=== PATIENT | female | born 1955 | race Caucasian/White ===

== ENCOUNTER 2025-08-12 13:13 | Inpatient (IN) | payer MEDICARE, OTHER, SELFPAY ==
--- NOTE | 2025-08-12 13:31 | ED_ITS ---
HPI - Psych General Chief Complaint: Psychiatric Symptoms Stated Complaint: crisis, si? Time Seen by Provider: 08/12/25 14:36 Source: patient Mode of arrival: ambulatory Limitations: no limitations History of Present Illness ED Provider: Fabiola Sorto PA-C HPI Narrative: Patient is a 70 year old assigned female at with a history of interstitial cystitis presenting to the emergency department today with suicidal ideation. Patient states that she has been feeling depressed and suicidal. Patient denies any other complaints at this time. Related Data Home Medications ?Medication ?Instructions ?Recorded ?Confirmed Colace 100 mg PO BEDTIME 08/12/25 0 08/12/25 albuterol sulfate 90 mcg/actuation 2 puff inhalation Q 4H PRN Wheezing 08/12/25 08/12/25 aerosol inhaler anastrozole 1 mg tablet 1 mg PO DAILY 08/12/2508/12 atorvastatin 40 mg tablet 40 mg PO BEDTIME 08/12/25 bupropion HCl 300 mg 24 hr tablet, 300 mg PO QAM 08/1208/12/25 extended release cariprazine 1.5 mg capsule 1.5 mg PO BEDTIME 08/12/25 08/12/25 (Vraylar) fluoxetine 20 mg capsule 20 mg PO QAM 08/12/25 gabapentin 300 mg capsule 300 mg PO DAILY 08/12/25 gabapentin 600 mg tablet 600 mg PO BEDTIME 08/12/25 0 08/12/25 hydroxyzine HCl 25 mg tablet 25 mg PO DAILY PRN itch 0 08/12/25 08/12/25 lorazepam 1 mg PO DAILY MRX1 PRN anxie ty 08/12/25 08/12/25 lorazepam 1 mg tablet 1 mg PO BEDTIME 08/12/25 melatonin 5 mg tablet 5 mg PO BEDTIME 08/12/25 nitrofurantoin 1 cap PO BID 08/12/25 monohydrate/macrocrystals 100 mg capsule vibegron 75 mg tablet (Gemtesa) 75 mg PO DAILY 5 08/12/25 Allergies Allergy/AdvReac Type Severity Reaction Status Date / Time No Known Allergies Allergy Verified 08/12/25 13:32 Review of Systems 2 Constitutional: Constitutional: Reports as per HPI Eyes: Eyes: Reports as per HPI ENT: Reports as per HPI Cardiovascular: Cardiovascular: Reports as per HPI Respiratory: Respiratory: Reports as per HPI Gastrointestinal: Gastrointestinal: Reports as per HPI Genitourinary: Genitourinary: Reports as per HPI Musculoskeletal: Musculoskeletal: Reports as per HPI Integumentary/Breasts: Skin/Breast: Reports as per HPI Neurologic: Reports as per HPI Psychiatric: Psychiatric: Reports as per HPI Endocrine: Endocrine: Reports as per HPI Hematologic/Lymphatic: Hematologic/Lymphatic: Reports as per HPI Allergic/Immunologic: Allergic/Immunologic: Reports as per HPI [facility] Past Medical History Attestation statement: The following information was validated with the patient. Source: old records reviewed and nursing notes reviewed Social History Social History Advance Directives: No Advance Directives Information Provided: Yes Physical Exam 2 Vital Signs: Vital Signs: Last Vital Signs Temp 97.8 F 08/13/25 06:07 Pulse 89 08/13/25 06:07 Resp 18 08/13/25 06:07 BP 167/91 H 08/13/25 06:07 Pulse Ox 98 08/13/25 06:07 O2 Del Method Room Air 08/13/25 06:07 BMI result Body Mass Index 24.2 Const: General: cooperative, no acute distress, alert and awake Nutritional Appearance: well nourished Orientation/consciousness: patient oriented x3 HEENT: Head: Yes normal to inspection and Yes atraumatic Ears: hearing grossly normal bilaterally and external ears normal General nose exam: Normal external nose present, no nasal discharge noted and no epistaxis Face and sinus: Yes normal facial exam, No abrasion and No laceration Mouth: Normal oral and palatal mucosa present, no drooling and no muffled voice Eyes: General: appearance normal, both eyes and all related structures P eriorbital: periorbital findings normal Eyelids: Yes eyelids normal C onjunctivae: conjunctivae normal Pupils: Equal, round and reactive pupils present EOM: EOMs intact bilaterally Neck: Neck: Yes normal visual inspection and Yes full ROM Resp: Effort & Inspection: normal respiratory effort and able to speak in complete sentences Neuro: General: patient oriented x3, moves all extremities and CN's II-XI intact bilaterally Cranial nerves: Yes Equal, round and reactive pupils present Cognition (Neuro): normal cognition Extrem: General: Yes normal to inspection, Yes full ROM and Yes capillary refill normal Psych: Appearance: grossly normal Mental Status: mental status grossly normal Affect: Sad affect present Thought content: Suicidality present Course Course Course Narrative: This is a Rapid Medical Examination (RME) performed by Cj Adames PA-C in triage. Full HPI, ROS, assessment and treatment plan per primary provider in the Main ED. Hx: 70 yo F here w/ depression and SI. Plan: med clearance, care team Reevaluation(s) Reevaluation #1: Time: 06:02 Date: 08/13/25 Provider: Swati Shaw DO Patient in physician observation for psychiatric evaluation.? No acute events reported overnight. No current complaints. VS stable.? Patient is in bed search status. on macrobid for UTI. Will continue to monitor. Reevaluation #2: Time: 14:37 Date: 08/13/25 Provider: Swati Shaw DO Physician observation ended at 237pm. Patient to be admitted as inpatient to psychiatry. Medications Administered Generic Name Dose Route Start Last Admin Trade Name Freq PRN Reason Stop Dose Admin Acetaminophen 650 mg 08/13/25 06:02 08/13/25 06:34 Acetaminophen 325 Mg Tablet PO 650 mg Q6H PRN Administration Pain, Mild 1-3,fever,headache Anastrozole 1 mg 08/13/25 09:00 08/13/25 09:29 Anastrozole 1 Mg Tablet PO 1 mg DAILY KENZIE Administration Atorvastatin Calcium 40 mg 08/12/25 21:30 08/12/25 21:45 Atorvastatin Calcium 40 Mg Tablet PO 40 mg BEDTIME KENZIE Administration Bupropion HCl 300 mg 08/13/25 09:00 08/13/25 08:39 Bupropion Hcl Xl 300 Mg Tab.Er.24h PO 300 mg DAILY KENZIE Administration Cariprazine 1.5 mg 08/12/25 21:30 08/12/25 21:45 Cariprazine Hcl 1.5 Mg Capsule PO 1.5 mg BEDTIME KENZIE Administration Docusate Sodium 100 mg 08/12/25 21:30 08/12/25 21:45 Docusate Sodium 100 Mg Capsule PO 100 mg BEDTIME KENZIE Administration Fluoxetine HCl 20 mg 08/13/25 09:00 08/13/25 08:39 Fluoxetine Hcl 20 Mg Capsule PO 20 mg DAILY KENZIE Administration Gabapentin 600 mg 08/12/25 21:00 08/12/25 21:44 Gabapentin 600 Mg Tablet PO 600 mg BEDTIME KENZIE Administration Gabapentin 300 mg 08/13/25 09:00 08/13/25 08:39 Gabapentin 300 Mg Capsule PO 300 mg DAILY KENZIE Administration Lorazepam 1 mg 08/12/25 21:30 08/12/25 21:45 Lorazepam 1 Mg Tablet PO 1 mg BEDTIME KENZIE Administration Melatonin 6 mg 08/12/25 21:30 08/12/25 21:45 Melatonin 3 Mg Tablet PO 6 mg BEDTIME KENZIE Administration Nitrofurantoin Macrocrystals 100 mg 08/12/25 21:30 08/13/25 08:39 Nitrofurantoin Monohyd/M-Cryst 100 Mg Capsule PO 100 mg BID KENZIE Administration Discontinued Medications Generic Name Dose Route Start Last Admin Trade Name Lit PRN Reason Stop Dose Admin Acetaminophen 975 mg 08/12/25 20:25 08/12/25 20:43 Acetaminophen 325 Mg Tablet PO 08/12/25 20:26 975 mg ONCE ONE Administration Medical Decision Making Medical Decision Making MDM Narrative: Patient is a 70 year old assigned female at with a history of interstitial cystitis presenting to the emergency department today with suicidal ideation. Patient's physical exam was as noted in the physical exam portion of this note and consistent with a depressed individual. Patient's blood work was unremarkable. I explained my physical exam findings as well as all test results to the patient. I answered all questions asked by the patient. Patient placed in observation - pending CARE team evaluation at 1436 on 08/12/2025. Patient's disposition will be determined after CARE team evaluation. 08/12/2025 0761 Fabiola Sorto PA-C ---> CARE team evaluated the patient and recommended inpatient level of care. Differential Diagnosis Differential Diagnoses: The differential diagnosis associated with the presentation includes Depression Suicidal ideation Admission/Observation Consideration of admission/observation: Escalation of care including admission/observation considered Patient will either be admitted here at [facility] psychiatric service or transferred to an appropriate inpatient psychiatric unit. Consult Healthcare Provider Management of the patient was discussed with: Behavioral Health Provider (spoke with the CARE team as noted in the MDM Rationale portion of this note. ) Lab Data [facility] Lab Attestation statement: I reviewed the patient's lab results. My interpretation of these results are in the MDM Rationale portion of this note. 08/12/25 14:02 08/12/25 14:02 Labs: Lab Results 08/12/25 08/12/25 Range/Units 14:02 16:18 WBC 7.0 (4.8-10.8) X10*3/uL RBC 5.07 (4.20-5.50) X10*6/uL Hgb 14.4 (12.0-16.0) g/dl Hct 43.5 (37.0-47.0) % MCV 85.8 (80.0-98.0) fL MCH 28.4 (27.0-33.0) pg MCHC 33.1 (31.0-35.0) g/dl RDW 13.2 (11.0-16.0) % Plt Count 186 (160-400) X10*3/uL MPV 10.8 (9.4-12.3) fL Immature Gran % (Auto) 0.4 (0.0-0.4) % Neut % (Auto) 80.6 H (45-73) % Lymph % (Auto) 12.6 L (20-40) % [place] % (Auto) 5.7 (2-11) % Eos % (Auto) 0.6 (0-4) % Baso % (Auto) 0.1 (0-2) % Lymph # (Auto) 0.9 L (1.2-4.9) X10*3/uL [place] # (Auto) 0.4 (0.1-1.2) X10*3/uL Eos # (Auto) 0.0 (0.0-0.4) X10*3/uL Baso # (Auto) 0.0 (0.0-0.2) X10*3/uL Abs Immat Gran (auto) 0.03 (0.00-0.03) X10*3/uL Absolute Neuts (auto) 5.6 (2.0-8.3) x10*3/uL Absolute Nucleated RBC 0.000 (0.0-0.012) X10*3/uL Nucleated RBC % (auto) 0.0 (0.0-0.2) /100WBC Sodium 143 (135-145) mmol/L Potassium 3.7 (3.3-5.1) mmol/L Chloride 109 H (96-108) mmol/L Carbon Dioxide 27 (22-29) mmol/L Anion Gap 11 L (12-20) BUN 14 (9-16) mg/dL Creatinine 0.96 (0.5-1.4) mg/dL Estim Creat Clear Calc 51.8 Estimated GFR 58 Random Glucose 97 (60-115) mg/dL Calcium 9.3 (8.4-10.2) mg/dL Magnesium 2.2 (1.6-2.6) mg/dL Total Bilirubin 0.4 (0.0-1.0) mg/dL AST 23 (5-31) U/L ALT 15 (0-31) U/L Alkaline Phosphatase 71 (39-117) U/L Total Protein 7.3 (6.5-8.0) g/dL Albumin 4.4 (3.5-5.0) g/dL Urine Color Yellow Urine Appearance Clear Urine pH 6.5 (5.0-9.0) Ur Specific [place] 1.010 (1.005-1.025) Urine Protein Negative (Neg-Trace) mg/dL Urine Glucose (UA) Negative (Negative) mg/dL Urine Ketones Negative (Negative) mg/dL Urine Blood Negative (Negative) Urine Nitrite Positive H (Negative) Ur Leukocyte Esterase Small (1+) H (Negative) Urine RBC 0-2 (0-2) /HPF Urine WBC 6-10 H (0-5) /HPF Ur Squamous Epith Cells 0-2 (0-2) /HPF Urine Bacteria 4+ (None Seen) Hyaline Casts 0-2 (0-2) /LPF Salicylates < 5.0 L (15-30) mg/dL Urine Opiates Screen Not Detected (Not Detect) Ur Buprenorphine Scrn Not Detected (Not Detect) ng/mL Ur Oxycodone Screen Not Detected (Not Detect) ng/mL Urine Methadone Screen Not Detected (Not Detect) ng/mL Urine Fentanyl Screen POSITIVE H (Not Detect) Acetaminophen 5 (<30) mcg/mL Ur Barbiturates Screen Not Detected (Not Detect) Ur Phencyclidine Scrn Not Detected (Not Detect) Ur Amphetamines Screen Not Detected (Not Detect) U Benzodiazepines Scrn Not Detected (Not Detect) Urine Cocaine Screen Not Detected (Not Detect) U Marijuana (THC) Screen Not Detected (Not Detect) Ethyl Alcohol < 10 mg/dL Discharge Plan Discharge Clinical Impression: Suicidal ideation Patient Disposition: Admitted As Inpatient Interventions: Bonner-Suicide Risk Severity Scale Last Done: 08/12/25 14:46 Print Language: Vincentian
[2025-08-12 13:32] VITALS: BP 162/83; PULSE 86; RESP 16; TEMP 36.2; O2SAT 96; BMI 24.2
[2025-08-12 14:07] LABS: MANUAL DIFF FLAG NO
[2025-08-12 14:08] LABS: Hematocrit 43.5 % (37.0-47.0); Hemoglobin 14.4 g/dl (12.0-16.0); Imm Gran Abs Auto 0.03 X10*3/uL (0.00-0.03); Imm Gran Pct Auto 0.4 % (0.0-0.4); Lymphocytes Absolute Auto 0.9 X10*3/uL (1.2-4.9); Mean Corpuscular HGB Conc 33.1 g/dl (31.0-35.0); Mean Corpuscular Hemoglobin 28.4 pg (27.0-33.0); Mean Corpuscular Volume 85.8 fL (80.0-98.0); NRBC Abs Auto 0.000 X10*3/uL (0.0-0.012); NRBC Pct Auto 0.0 /100WBC (0.0-0.2); Platelet Count 186 X10*3/uL (160-400); Red Blood Count 5.07 X10*6/uL (4.20-5.50); White Blood Count 7.0 X10*3/uL (4.8-10.8)
[2025-08-12 14:25] LABS: Acetaminophen LAB 5 mcg/mL (<30); Alanine Aminotransferase 15 U/L (0-31); Albumin Level 4.4 g/dL (3.5-5.0); Alkaline Phosphatase 71 U/L (39-117); Anion Gap 11 (12-20); Aspartate Amino Transferase 23 U/L (5-31); Blood Urea Nitrogen 14 mg/dL (9-16); Calcium 9.3 mg/dL (8.4-10.2); Carbon Dioxide 27 mmol/L (22-29); Chloride 109 mmol/L (96-108); Creatinine Clr Calc Pharmacy 51.8; Estimated Glomerular Filt Rate 58; Magnesium 2.2 mg/dL (1.6-2.6); Potassium 3.7 mmol/L (3.3-5.1); Salicylate < 5.0 mg/dL (15-30); Sodium 143 mmol/L (135-145); Total Protein 7.3 g/dL (6.5-8.0)
[2025-08-12 14:48] VITALS: BP 162/83; PULSE 86; RESP 16; TEMP 36.2
[2025-08-12 16:37] LABS: Appearance Urine Clear; Glucose Urine UA Negative (Negative); PH 6.5 (5.0-9.0); Specific Gravity - Urine 1.010 (1.005-1.025); UMIC TRIGGER UACC YES
[2025-08-12 16:40] LABS: UACC Culture Trigger YES
[2025-08-12 16:50] LABS: Cannabinoid Screen Urine Not Detected (Not Detect)
--- NOTE | 2025-08-12 21:16 | PHA.MEDREC ---
Pharmacy Consult ? Medication Reconciliation Pharmacy has completed the medication reconciliation. Completed by nursing, reviewed by pharmacy
--- NOTE | 2025-08-12 22:20 | PC.NURSE ---
home meds ordered. pt mediated per JAN. pt very upset and afraid to drink again because she is frequently in the bathroom to urinate. pt needs Gemtesa brought in from home for overactive badder.
--- NOTE | 2025-08-13 05:50 | PC.NURSE ---
pt resting comfortably through the night, up a few times to use the bathroom but did get some rest.
[2025-08-13 06:07] VITALS: BP 167/91; PULSE 89; RESP 18; TEMP 36.6; O2SAT 98
--- NOTE | 2025-08-13 07:09 | PC.NURSE ---
Assumed care, report received. Pt is awake and eating her breakfast, she states she feels tired and depressed. Vague SI.
--- NOTE | 2025-08-13 08:09 | ECG_ITS ---
Test Reason : med clearance Blood Pressure : */* mmHG Vent. Rate : 92 BPM Atrial Rate : 92 BPM P-R Int : 156 ms QRS Dur : 82 ms QT Int : 368 ms P-R-T Axes : 32 51 88 degrees QTcB Int : 455 ms Sinus rhythm with Premature atrial complexes Anteroseptal infarct , age undetermined Abnormal ECG No previous ECGs available Referred By: Swati Shaw Electronically Signed By: Juan Antonio Burk
[2025-08-13] MEDS: buPROPion HCl XL 300 MG TAB.ER.24H PO (08:39)
--- NOTE | 2025-08-13 14:48 | PC.NURSE ---
Pt had a visit form a assistant at surgery, Joelle that has been working with her for afew days. Pt was told she was going to an Adult, instead of a geriatric unit and had increased anxiety and tearful. SHe was given ativan with good effect.
[2025-08-13 16:50] VITALS: BP 160/80; PULSE 98; RESP 18; TEMP 36.4; O2SAT 99
[2025-08-13 16:51] VITALS: BMI 25.9
--- NOTE | 2025-08-13 18:56 | PC.ADMIT ---
Yue, who likes to be called Adriana arrived on M5 on M5 at 1615 with an admitting diagnosis of SI, worsening depression. Adriana has been experiencing increased stressors in her life and has a history of 3 past suicide attempts all in 2020. 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 [facility]. She reports she has outpatient providers but feels her depression is not managed. She denies smoking, illicit drug use, and alcohol use. She is open to a aircraft assembler visit and flu vaccine. She has multiple medical issues including asthma, sleep apnea (came in with own CPAP machine), breast CA, bladder CA, painful bladder syndrome.? She is currently being treated for a UTI and follows a bland diet for IBS. She denies SI/HI/AVH, rates depression 10 and anxiety 7. She also reports a broken tooth which she is taking Tylenol and Oragel has been ordered. She signed a CV with Teresa Phelan placed? on 15 min checks, filled out the dinner menu, and oriented to the unit.?
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
[2025-08-13 20:00] VITALS: BP 135/76; PULSE 93; RESP 18; TEMP 35.9; O2SAT 99
[2025-08-13] MEDS: Benzocaine 20 % Oral Gel 9 GM TUBE 1 APPL MUCOUS MEM (22:41)
[2025-08-14 08:00] VITALS: BP 140/75; PULSE 84; TEMP 36.1; O2SAT 96
[2025-08-14] MEDS: PT OWN (Vibegron [Gemtesa] 75 mg tablet) 75 EACH PO (08:24)
[2025-08-14] MEDS: buPROPion HCl XL 300 MG TAB.ER.24H PO (08:25)
--- NOTE | 2025-08-14 08:29 | HO.PM.IMCN ---
History of Present Illness Data of Consult Service Date: 08/14/25 Primary Care Provider: Iman Lainez MD [facility] Reason for consult: Medical management 70-year-old female with a past medical history of hyperlipidemia, asthma, history of breast cance 2012, status post lumpectomy and radiation, history of renal cancer 2020, status post resection. OLU on CPAP and recurrent major depressive disorder with anxiety presented to ED with increased depression and suicidal ideation. ED workup revealed a normal CBC with no leukocytosis or anemia, no electrolyte imbalances, no evidence of renal or liver injury, urinalysis indicative of urinary tract infection, she was treated with Macrobid. Her tox screen is positive for fentanyl(question of false positicve). Denies substance use. On exam she denies any shortness of breath, dizziness, lightheadedness, urinary symptoms, abdominal symptoms, nausea vomiting or diarrhea, headaches or visual changes. She reports a reaction to tape on her right antecubital region, 2 small areas of purpura noted. No open areas. She has no health concerns Review of Systems Review of Systems: Denies any shortness of breath, chest pain, dizziness, lightheadedness, abdominal pain or discomfort, nausea vomiting or diarrhea PMFSH Social History Household Members: None Housing: House Do you presently have visiting nurse or other home services: No Patient Tobacco Use Status: Never used Tobacco Smoked in Last 30 Days: No Patient Interested in Nicotine Replacement: No Patient Given Instructions on How to Stop Smoking: No Second Hand Smoke Exposure: No Currently Displaying Signs/Symptoms of Drug Intoxication Withdrawal: No Spiritual Healthcare Practices: NA Jehovah'S Witness Healthcare Practices: Mosque Cultural Healthcare Practices: NA Advance Directives: No Advance Directives Information Provided: Yes Do you have thoughts of harming others: None Do you have a plan to hurt others: No Plan Recently lost weight without trying: Unsure How much weight loss: Unsure Eating poorly because of decreased appetite: No Nutrition screen score: 4 Nutrition Risks: No Nutritional Risk Patient : No : No Poor oral hygiene: No service: No Sexual orientation: Straight/Heterosexual Meds Allergies Allergy/AdvReac Type Severity Reaction Status Date / Time No Known Allergies Allergy Verified 08/12/25 13:32 Active Medications: Current Medications Acetaminophen (Acetaminophen 325 Mg Tablet) 650 mg PO Q6H PRN PRN Reason: Pain, Mild 1-3,fever,headache Last Admin: 08/13/25 22:41 Dose: 650 mg Al Hydroxide/Mg Hydroxide (Magnesium Hydrox/Alum Hydrox 30 Ml Oral.Susp) 30 ml PO Q6H PRN PRN Reason: Heartburn/Nausea Anastrozole (Anastrozole 1 Mg Tablet) 1 mg PO DAILY [facility] Last Admin: 08/14/25 08:25 Dose: 1 mg Atorvastatin Calcium (Atorvastatin Calcium 40 Mg Tablet) 40 mg PO BEDTIME KENZIE Last Admin: 08/13/25 22:20 Dose: 40 mg Benzocaine (Benzocaine 20 % Oral Gel 9 Gm Tube) 1 appl MUCOUS MEM QID PRN; Protocol PRN Reason: tooth Last Admin: 08/13/25 22:41 Dose: 1 appl Bupropion HCl (Bupropion Hcl Xl 300 Mg Tab.Er.24h) 300 mg PO DAILY [facility] Last Admin: 08/14/25 08:25 Dose: 300 mg Cariprazine (Cariprazine Hcl 1.5 Mg Capsule) 1.5 mg PO BEDTIME KENZIE Last Admin: 08/13/25 22:20 Dose: 1.5 mg Docusate Sodium (Docusate Sodium 100 Mg Capsule) 100 mg PO BEDTIME KENZIE Last Admin: 08/13/25 22:20 Dose: 100 mg Fluoxetine HCl (Fluoxetine Hcl 20 Mg Capsule) 20 mg PO DAILY KENZIE Last Admin: 08/14/25 08:25 Dose: 20 mg Gabapentin (Gabapentin 600 Mg Tablet) 600 mg PO BEDTIME KENZIE Last Admin: 08/13/25 22:18 Dose: 600 mg Gabapentin (Gabapentin 300 Mg Capsule) 300 mg PO DAILY KENZIE Last Admin: 08/14/25 08:25 Dose: 300 mg Hydroxyzine HCl (Hydroxyzine Hcl 25 Mg Tablet) 25 mg PO DAILY PRN PRN Reason: itch Ibuprofen (Ibuprofen 600 Mg Tablet) 600 mg PO Q6H PRN PRN Reason: tooth pain Lorazepam (Lorazepam 1 Mg Tablet) 1 mg PO BEDTIME KENZIE Last Admin: 08/13/25 22:18 Dose: 1 mg Lorazepam (Lorazepam 1 Mg Tablet) 1 mg PO BEDTIME PRN PRN Reason: anxiety Magnesium Hydroxide (Milk Of Magnesia 30 Ml Oral.Susp) 30 ml PO DAILY PRN PRN Reason: Constipation Melatonin (Melatonin 3 Mg Tablet) 6 mg PO BEDTIME KENZIE Last Admin: 08/13/25 22:20 Dose: 6 mg Nicotine (Nicotine 21 Mg Patch.Td24) 21 mg TRANSDERMA DAILY PRN PRN Reason: nicotine craving Nicotine Polacrilex (Nicotine Polacrilex 2 Mg Gum) 2 mg BUCCAL Q2H PRN PRN Reason: Nicotine Cravings Nitrofurantoin Macrocrystals (Nitrofurantoin Monohyd/M-Cryst 100 Mg Capsule) 100 mg PO BID KENZIE Stop: 08/17/25 23:59 Last Admin: 08/14/25 08:25 Dose: 100 mg Pt Own (Vibegron [ Gemtesa] 75 Mg Tablet) 75 mg PO DAILY KENZIE Last Admin: 08/14/25 08:24 Dose: 75 mg Trazodone HCl (Trazodone Hcl 50 Mg Tablet) 50 mg PO BEDTIME MRX1 PRN PRN Reason: Insomnia Home Medications ?Medication ?Instructions ?Recorded ?Confirmed ?Last Taken ?Type Colace 100 mg PO BEDTIME 08/12/25 08/12/25 08/11/25 History albuterol sulfate 90 mcg/actuation 2 puff inhalation Q4H PRN Wheezing 08/12/25 08/12/25 Unknown History aerosol inhaler anastrozole 1 mg tablet 1 mg PO DAILY 08/12/25 08/12/25 08/11/25 History atorvastatin 40 mg tablet 40 mg PO BEDTIME 08/12/25 08/12/25 08/11/25 History bupropion HCl 300 mg 24 hr tablet, 300 mg PO QAM 08/12/25 08/12/25 08/11/25 History extended release cariprazine 1.5 mg capsule 1.5 mg PO BEDTIME 08/12/25 08/12/25 08/11/25 History (Otoniel) fluoxetine 20 mg capsule 20 mg PO QAM 08/12/25 08/12/25 08/11/25 History gabapentin 300 mg capsule 300 mg PO DAILY 08/12/25 08/12/25 08/11/25 History gabapentin 600 mg tablet 600 mg PO BEDTIME 08/12/25 08/12/25 08/11/25 History hydroxyzine HCl 25 mg tablet 25 mg PO DAILY PRN itch 08/12/25 08/12/25 08/11/25 History lorazepam 1 mg PO DAILY MRX1 PRN anxiety 08/12/25 08/12/25 Unknown History lorazepam 1 mg tablet 1 mg PO BEDTIME 08/12/25 08/12/25 08/11/25 History melatonin 5 mg tablet 5 mg PO BEDTIME 08/12/25 08/12/25 08/11/25 History nitrofurantoin 1 cap PO BID 08/12/25 08/12/25 08/12/25 History monohydrate/macrocrystals 100 mg capsule vibegron 75 mg tablet (Gemtesa) 75 mg PO DAILY 08/12/25 08/12/25 08/11/25 History Physical Exam Vital Signs and Narrative: Vital Signs: Last Vital Signs Temp 96.9 F 08/14/25 08:00 Pulse 84 08/14/25 08:00 Resp 18 08/13/25 20:00 BP 140/75 H 08/14/25 08:00 Pulse Ox 96 08/14/25 08:00 O2 Del Method Room Air 08/14/25 08:00 BMI result Body Mass Index 25.9 CONST: Alert and oriented, in NAD. Well nourished HEENT: Normocephalic, atraumatic, MMM, Eyes clear, Neck supple RESP: Lungs clear, RRR even and regular HEART:,RRR, S1, S2. No murmur, no edema GI:Abdomen Soft NT, ND. + BS times four :Deferred SKIN: Warm dry and intact, 2 small areas of purpura to the lateral and medial aspect of right elbow. NEURO:CN II-XII Intact bilaterally, Sensation intact. Speech clear PSYCH: Normal affect Results Labs 08/12/25 14:02 08/12/25 14:02 Assessment and Plan (1) Interstitial cystitis: Status: Acute Plan 70-year-old female recurrent major depressive disorder with anxiety, and suicidal ideation is admitted here after medically cleared by the ED for mood stabilization. MDD/anxiety/SI Treatment per psychiatric team OLU Continue with CPAP HLD Continue Atorvastatin History of breast and bladder cancer Bladder-resection in 2010 Breast-status post radiation and lumpectomy in 2013-now continues on anastrozole Interstitial cystitis/UTI Continue Gemtesa Currently being treated for UTI Followed by Dr. Chatman yearly Thank you for allowing me to participate in the care of this patient. Will follow as needed, please notify medical provider with any changes in condition or concerns.
--- NOTE | 2025-08-14 09:45 | MHC.CLN ---
CONSULT NOTED THAT PATIENT FOLLOWS A BLAND DIET DUE TO IBS. ABLE TO MAKE OWN MENU SELECTIONS. DIET RX REGULAR. NO FURTHER DIET RESTRICTION RX TO ALLOW FOR PATIENT CHOICES.
[2025-08-14] MEDS: Flu Vacc TS2025-26(6mo up)/PF 0.5 ML SYRINGE IM (11:29)
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
[2025-08-14] MEDS: Benzocaine 20 % Oral Gel 9 GM TUBE 1 APPL MUCOUS MEM (18:40)
[2025-08-14 19:42] VITALS: BP 149/81; PULSE 94; TEMP 36.4; O2SAT 96
[2025-08-15 08:00] VITALS: BP 179/80; PULSE 88; RESP 16; TEMP 36; O2SAT 95
[2025-08-15 08:31] LABS: Alanine Aminotransferase 17 U/L (0-31); Albumin Level 4.7 g/dL (3.5-5.0); Alkaline Phosphatase 65 U/L (39-117); Anion Gap 11 (12-20); Aspartate Amino Transferase 23 U/L (5-31); Blood Urea Nitrogen 13 mg/dL (9-16); Calcium 9.8 mg/dL (8.4-10.2); Carbon Dioxide 28 mmol/L (22-29); Chloride 109 mmol/L (96-108); Cholesterol 177 mg/dL (<200); Creatinine Clr Calc Pharmacy 60.9; Estimated Glomerular Filt Rate > 60; HDL Cholesterol 47 mg/dL (>40); Potassium 4.4 mmol/L (3.3-5.1); Sodium 144 mmol/L (135-145); Total Protein 7.3 g/dL (6.5-8.0); Triglycerides 151 mg/dL (<150)
[2025-08-15 08:49] LABS: Free T4 (Free Thyroxine) 0.98 ng/dL (0.71-1.85); Thyroid Stimulating Hormone 2.27 uIU/mL (0.32-4.0)
[2025-08-15] MEDS: buPROPion HCl XL 300 MG TAB.ER.24H PO (08:54)
[2025-08-15] MEDS: PT OWN (Vibegron [Gemtesa] 75 mg tablet) 75 EACH PO (08:54)
[2025-08-15 08:58] LABS: Folate 5.5 ng/mL (> or = 4.0); Vitamin B12 266 pg/mL (200-900)
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
[2025-08-15 10:00] VITALS: BP 148/78
[2025-08-15 10:29] LABS: Hemoglobin A1C 129.5448 umol/L; Total Hemoglobin (HGBA1C) 3570.6238 umol/L
[2025-08-15 20:22] VITALS: BP 161/88; PULSE 94; RESP 18; TEMP 36.3; O2SAT 100
[2025-08-16 08:00] VITALS: BP 168/79; PULSE 96; RESP 15; TEMP 36.5; O2SAT 95
[2025-08-16] MEDS: buPROPion HCl XL 300 MG TAB.ER.24H PO (09:14)
[2025-08-16] MEDS: PT OWN (Vibegron [Gemtesa] 75 mg tablet) 75 EACH PO (09:24)
--- NOTE | 2025-08-16 13:56 | PM.EVENT ---
Event Note Date of Service: 08/16/25 Event Note: Patient noted to have elevated blood pressure readings, greater than 140s over 80s. We will start low-dose lisinopril and follow up with labs on Tuesday and titrate up as needed. Time Spent With Patient Time: Total time managing care of this patient today ____ minutes.
[2025-08-16 15:05] VITALS: BP 139/79
--- NOTE | 2025-08-16 17:24 | PC.NURSE ---
Pt very hesitant to take Lisinopril. She stated that she has never had HTN before and believes that it is directly related to being inpatient.
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
[2025-08-16 20:00] VITALS: BP 170/82; RESP 100; TEMP 36.4; O2SAT 98
[2025-08-16] MEDS: Benzocaine 20 % Oral Gel 9 GM TUBE 1 APPL MUCOUS MEM (21:11)
--- NOTE | 2025-08-17 07:47 | HO.PSYCHPN ---
Subjective Subjective Date of Service: 08/17/25 Reason For Visit: SI Subjective Notes: Conditional Voluntary Healthcare Proxy: No Guardianship: No Medical Problems Affecting Mental Status: No Interim History: 70 yo who is feeling better physical issues of bp/uti- though today complaining of diarrhea to nuring = observed by this provider small formed stools- reports some trouble sleeping last night with cpap being missing- was found and not feeling comfortable on mattress- denies current si/hi/avh- discussed with pt not using lorazepam at bed time if doesn't have cpap machine- this scared pt then she wanted to get off lorazepam- but discussed would need to be weened off over time to be discussed with team- but likely safe with cpap- Medication Compliance: Yes Side effects from medications: No Attending Groups: Yes Review of Systems Acute medical concerns: No improved bp today Medical Review of Systems: changed (co looser stools- stool did not look like worrisome diarrhea- ) Mental Status Exam Mental Status Exam Patient Appearance: Appropriate Patient Orientation: Person, Place, Time and Situation Level of Consciousness: Awake Patient Behavior: Appropriate, Cooperative and Good Eye Contact Mood Description: Nervous Affect Description: Apprehensive Patient Cognition Impaired: No Ability to Follow Directions: Good Speech Pattern: Clear Hallucinations: None Delusions: Not Present Thought Process: Intact and Goal Oriented Thought Content: positive for Intact Judgement: Fair Diagnostics Vital Signs (24Hr): Vital Signs - 24 hr 08/16/25 08:00 08/16/25 15:05 08/16/25 20:00 Temperature 97.7 F 97.5 F Pulse Rate 96 Respiratory Rate 15 100 H Blood Pressure 168/79 H 139/79 170/82 H Pulse Oximetry 95 98 Oxygen Delivery Method Room Air Room Air BMI result Body Mass Index 25.9 Labs 08/12/25 14:02 08/15/25 07:53 Labs: Laboratory Results - last 48 hr 08/15/25 07:53 Sodium 144 Potassium 4.4 Chloride 109 H Carbon Dioxide 28 Anion Gap 11 L BUN 13 Creatinine 0.89 Estim Creat Clear Calc 60.9 Estimated GFR > 60 Random Glucose 115 Estimat Average Glucose 111 Hemoglobin A1c % 5.5 Calcium 9.8 Total Bilirubin 0.4 AST 23 ALT 17 Alkaline Phosphatase 65 Total Protein 7.3 Albumin 4.7 Triglycerides 151 H Cholesterol 177 LDL Cholesterol, Calc 100 H HDL Cholesterol 47 Vitamin B12 266 Folate 5.5 TSH 2.27 Free T4 0.98 Medications Medications Current Medications Acetaminophen (Acetaminophen 325 Mg Tablet) 650 mg PO Q6H PRN PRN Reason: Pain, Mild 1-3,fever,headache Last Admin: 08/16/25 21:10 Dose: 650 mg Al Hydroxide/Mg Hydroxide (Magnesium Hydrox/Alum Hydrox 30 Ml Oral.Susp) 30 ml PO Q6H PRN PRN Reason: Heartburn/Nausea Anastrozole (Anastrozole 1 Mg Tablet) 1 mg PO DAILY [facility] Last Admin: 08/16/25 09:14 Dose: 1 mg Atorvastatin Calcium (Atorvastatin Calcium 40 Mg Tablet) 40 mg PO BEDTIME KENZIE Last Admin: 08/16/25 21:10 Dose: 40 mg Benzocaine (Benzocaine 20 % Oral Gel 9 Gm Tube) 1 appl MUCOUS MEM QID PRN; Protocol PRN Reason: tooth Last Admin: 08/16/25 21:11 Dose: 1 appl Bupropion HCl (Bupropion Hcl Xl 300 Mg Tab.Er.24h) 300 mg PO DAILY [facility] Last Admin: 08/16/25 09:14 Dose: 300 mg Cariprazine (Cariprazine Hcl 3 Mg Capsule) 3 mg PO BEDTIME [facility] Last Admin: 08/16/25 21:10 Dose: 3 mg Docusate Sodium (Docusate Sodium 100 Mg Capsule) 100 mg PO BID [facility] Last Admin: 08/16/25 21:10 Dose: 100 mg Fluoxetine HCl (Fluoxetine Hcl 20 Mg Capsule) 20 mg PO DAILY [facility] Last Admin: 08/16/25 09:14 Dose: 20 mg Gabapentin (Gabapentin 600 Mg Tablet) 600 mg PO BEDTIME [facility] Last Admin: 08/16/25 21:10 Dose: 600 mg Gabapentin (Gabapentin 300 Mg Capsule) 300 mg PO DAILY [facility] Last Admin: 08/16/25 09:14 Dose: 300 mg Ibuprofen (Ibuprofen 600 Mg Tablet) 600 mg PO Q6H PRN PRN Reason: tooth pain Last Admin: 08/15/25 08:57 Dose: 600 mg Lisinopril (Lisinopril 2.5 Mg Tablet) 2.5 mg PO DAILY [facility]; Protocol Last Admin: 08/16/25 15:05 Dose: 2.5 mg Loperamide HCl (Loperamide Hcl 2 Mg Capsule) 4 mg PO Q4H PRN PRN Reason: loose stool Last Admin: 08/14/25 16:18 Dose: 2 mg Lorazepam (Lorazepam 1 Mg Tablet) 1 mg PO BEDTIME [facility] Last Admin: 08/16/25 21:10 Dose: 1 mg Lorazepam (Lorazepam 1 Mg Tablet) 1 mg PO BEDTIME PRN PRN Reason: anxiety Magnesium Hydroxide (Milk Of Magnesia 30 Ml Oral.Susp) 30 ml PO DAILY PRN PRN Reason: Constipation Melatonin (Melatonin 3 Mg Tablet) 6 mg PO BEDTIME [facility] Last Admin: 08/16/25 21:09 Dose: 6 mg Nicotine (Nicotine 21 Mg Patch.Td24) 21 mg TRANSDERMA DAILY PRN PRN Reason: nicotine craving Nicotine Polacrilex (Nicotine Polacrilex 2 Mg Gum) 2 mg BUCCAL Q2H PRN PRN Reason: Nicotine Cravings Nitrofurantoin Macrocrystals (Nitrofurantoin Monohyd/M-Cryst 100 Mg Capsule) 100 mg PO BID [facility] Stop: 08/17/25 23:59 Last Admin: 08/16/25 21:10 Dose: 100 mg Pt Own (Vibegron [ Gemtesa] 75 Mg Tablet) 75 mg PO DAILY [facility] Last Admin: 08/16/25 09:24 Dose: 75 mg Trazodone HCl (Trazodone Hcl 50 Mg Tablet) 50 mg PO BEDTIME MRX1 PRN PRN Reason: Insomnia Allergies Allergies Allergy/AdvReac Type Severity Reaction Status Date / Time No Known Allergies Allergy Verified 08/12/25 13:32 Assessment & Plan Assessment & Plan (1) Interstitial cystitis: Status: Acute Code(s): N30.10 - Interstitial cystitis (chronic) without hematuria (2) Suicidal ideation: Status: Acute Code(s): R45.851 - Suicidal ideations (3) 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 Patient reports that she feels as if she had a crash in mid May after [employer] raised the rent by $300. She reports that she had was on high since mid February, spending excessive money and experiencing an increase in energy like bus of energy . Patient reports having suicidal thoughts with no plan. Reports 3 prior suicide attempts in 2020 secondary to depressive episodes via overdose and strangled herself twice. Mother in March of 2025 and she had so much going on. She also reports was diagnosed with interstitial sistis and this has been ongoing stressors for her as she had to completely change her diet. Reports poor appetite. Formulation/clinical reasoning: Increasing in depression and anxiety, changing in appetite, increasing in suicidal thoughts. Feel like is she is back to the previous time during 2020 when she has 3 suicide attempts and was hospitalized for 3 times in that year. Increase in stress related to financial issues. Given history of 3 prior suicide attempts, history of severe depression and anxiety. Patient will benefit in restrictive environment for her own safety, medication adjustment for mood, and refer patient back to outpatient psychiatric services. Hospital course: 08/13/25: Continue with all home medications She is on Wellbutrin 300 for weight control in combination with naltrexone. However she has not taking naltrexone. Recently start on Prozac 20 mg for about 5 days ago from outpatient provider. She also start on Vraylar less than a month ago with current dose is 1.5 mg as potential to having bipolar the patient reports. Ativan 1 mg bedtime with a repeat dose not able to sleep for anxiety. Given Motrin 600 kill 6 hours p.r.n. for to pain. Orajel order q.i.d. for toot pain (bottom left crack tooth). On Macrobid twice a dayx 5 days for UTI. Last dose on 08/17. Gabapentin different dose during the day and at nighttime for anxiety. 08/14/25: Patient slept for 9 hours, compliant with medications. Reports no side effects. Patient so reports she did not slept well last night. We discussed medication change regarding Vraylar to target her anxiety depression/and possible high energy level symptoms. Patient denies safety concerns. Reports her anxiety is slightly better compared to yesterday but the depression is still there. Patient expressed frustration and upset regarding the CPAP machine at night. Reported it was tight but she was not able to adjust it as her daughter usually helps her at home. She also having concerns of how it was clean after she uses it. Concerns related to nursing. Nursing also reports patient reports 2 loose stool since this morning, Imodium ordered, and Vraylar increased up to 3 mg at bedtime. Patient is receptive to the plan, observe visible and attended groups, pleasant and cooperative, she shower this morning, wearing pajain2nite outfit. Vraylar 3mg at HS and Imodium 4mg q4hrs PRN for loose stools. Patient seen by hospitalist for H+P: per hospitalist note regarding medical treatment plan: OLU Continue with CPAP HLD Continue Atorvastatin History of breast and bladder cancer Bladder-resection in 2010 Breast-status post radiation and lumpectomy in 2012-now continues on anastrozole Interstitial cystitis/UTI Continue Gemtesa Currently being treated for UTI Followed by Dr. Chatman yearly 08/15/25: Patient reports she slept better than the night before, happier with the CPAP machine that was able to be adjusted. Reports feeling tired which could be from combination of feeling not able to sleep well the past to night, new environment, and medication increased. Patient denies safety concerns. No hallucinations. She is happy having a good visit with her daughter. This couple people came to visit today as well. Patient reports anxiety is elevated today after talking to the social media marketing manager in the morning. She reported that her son who is in [place] we will have the 1st baby soon. Less depressed. Patient seen by the dentist 2 weeks ago, the crack tooth was not able to be extracted due to calcium treatment. Patient will have Josefa from [facility] make appointments with the dentist so she can get it done after discharge. Patient feels that she may be ready by next Tuesday or . We will continue to monitor for safety and mental status change. We will review with patient regarding lab results. Patient reported that when she stressors at home, sometimes she is reading or going to the [facility] for activities and groups. She is aware that that is what she should do daily as she has a membership there. Advised patient not to giving personal information to any patients on the unit. Continued to encourage groups No med changes today. Tired but do well with Vraylar increased. 08/16/25: Patient slept for 8 hours, appetite is the same. She has been moved to 3 different rooms since yesterday. She is observed visible and attended groups. Eating in kitchen with peers. Social and be appropriate. Patient reports that she feels dizzy this morning after given Hydroxyzine this morning for anxiety. Patient has good family support and her sister in [place] who is wealthy who is able to help out patient with portion of the rent monthly which takes a lot of financial burden away from her shoulder which has been bothered her since May. Patient observed happy, smile, less anxious compare to this morning. She talks about how helpful her sister- Ambreen is. She is happy that she can start PHP at [facility] where they provide transportation and she would also attend to [facility] more often for exercise classes. Reviewed new medication for HTN which she says she does not have hx of but not sure why it has been elevated since admitted. . Will continue to monitor. BP has been elevated the past couple of days. Hospitalist contacted, started Lisinopril 2.5mg daily start today. 08/17- no change to plan - continues improving- 2nd round abiotics for uti- didn't sleep well last pm- Plan Patient on 15 minute checks for safety. 5 minute checks at night for CPAP Admitted to [facility]. CV. Work with treatment team to do collateral Utox +FEN which could be false positive as she denies using any substances. Seen by hospitalist on 08/14/25: broken tooth that sharp. Patient to FLU with the dentist upon discharge. Patient educated on: medication risk/benefits Informed Consent: understands and further education needed Reason for continued inpatient stay Substantial Risk for: rapid decompensation Time Spent With Patient Time: Total time managing care of this patient today ____ minutes.
[2025-08-17 08:00] VITALS: BP 131/59; PULSE 81; RESP 18; TEMP 37; O2SAT 95
[2025-08-17] MEDS: buPROPion HCl XL 300 MG TAB.ER.24H PO (08:57)
[2025-08-17] MEDS: PT OWN (Vibegron [Gemtesa] 75 mg tablet) 75 EACH PO (09:07)
[2025-08-17 13:04] VITALS: BP 146/68; PULSE 96; RESP 16; TEMP 36; O2SAT 97
[2025-08-17 16:12] VITALS: BP 158/80; PULSE 91; O2SAT 98
[2025-08-17 20:00] VITALS: BP 145/65; PULSE 87; TEMP 36.4; O2SAT 97
--- NOTE | 2025-08-18 07:25 | P.PNPSI_ITS ---
Subjective Subjective Date of Service: 08/18/25 Reason For Visit: SI Subjective Notes: Conditional Voluntary Healthcare Proxy: No Guardianship: No Medical Problems Affecting Mental Status: Yes (bp resolved, ongoing co diarrhea but really frequent formed stools) Interim History: 70 yo WF says she slept a little better last pm- looking to go to [facility]- Energy ok, reports intersitial cystitis so goes to frequently- hx uti x 2 abitoics- Asked pt to let us know if stool became unformed- Medication Compliance: Yes Side effects from medications: No Attending Groups: Intermittent Review of Systems Acute medical concerns: No Medical Review of Systems: unchanged Mental Status Exam Mental Status Exam Patient Appearance: Well Grooomed and Appropriate Patient Orientation: Person, Place, Time and Situation Level of Consciousness: Awake Patient Behavior: Appropriate, Cooperative and Good Eye Contact Mood Description: Calm Affect Description: Blunted Patient Cognition Impaired: No Ability to Follow Directions: Good Speech Pattern: Clear Hallucinations: None Delusions: Not Present Thought Process: Intact and Goal Oriented Judgement: Good Diagnostics Vital Signs (24Hr): Vital Signs - 24 hr 08/17/25 08:00 08/17/25 13:04 08/17/25 16:12 Temperature 98.6 F 96.8 F Pulse Rate 81 96 91 Respiratory Rate 18 16 Blood Pressure 131/59 L 146/68 H 158/80 H Pulse Oximetry 95 97 98 Oxygen Delivery Method Room Air Room Air Room Air 08/17/25 20:00 Temperature 97.6 F Pulse Rate 87 Respiratory Rate Blood Pressure 145/65 H Pulse Oximetry 97 Oxygen Delivery Method Room Air BMI result Body Mass Index 25.9 Labs 08/12/25 14:02 08/15/25 07:53 Medications Medications Current Medications Acetaminophen (Acetaminophen 325 Mg Tablet) 650 mg PO Q6H PRN PRN Reason: Pain, Mild 1-3,fever,headache Last Admin: 08/17/25 19:13 Dose: 650 mg Al Hydroxide/Mg Hydroxide (Magnesium Hydrox/Alum Hydrox 30 Ml Oral.Susp) 30 ml PO Q6H PRN PRN Reason: Heartburn/Nausea Anastrozole (Anastrozole 1 Mg Tablet) 1 mg PO DAILY KENZIE Last Admin: 08/17/25 08:58 Dose: 1 mg Atorvastatin Calcium (Atorvastatin Calcium 40 Mg Tablet) 40 mg PO BEDTIME KENZIE Last Admin: 08/17/25 21:10 Dose: 40 mg Benzocaine (Benzocaine 20 % Oral Gel 9 Gm Tube) 1 appl MUCOUS MEM QID PRN; Protocol PRN Reason: tooth Last Admin: 08/16/25 21:11 Dose: 1 appl Bupropion HCl (Bupropion Hcl Xl 300 Mg Tab.Er.24h) 300 mg PO DAILY [facility] Last Admin: 08/17/25 08:57 Dose: 300 mg Cariprazine (Cariprazine Hcl 3 Mg Capsule) 3 mg PO BEDTIME [facility] Last Admin: 08/17/25 21:10 Dose: 3 mg Docusate Sodium (Docusate Sodium 100 Mg Capsule) 100 mg PO BID [facility] Last Admin: 08/17/25 22:35 Dose: Not Given Fluoxetine HCl (Fluoxetine Hcl 20 Mg Capsule) 20 mg PO DAILY [facility] Last Admin: 08/17/25 08:57 Dose: 20 mg Gabapentin (Gabapentin 600 Mg Tablet) 600 mg PO BEDTIME [facility] Last Admin: 08/17/25 21:10 Dose: 600 mg Gabapentin (Gabapentin 300 Mg Capsule) 300 mg PO DAILY [facility] Last Admin: 08/17/25 09:07 Dose: 300 mg Ibuprofen (Ibuprofen 600 Mg Tablet) 600 mg PO Q6H PRN PRN Reason: tooth pain Last Admin: 08/17/25 21:10 Dose: 600 mg Lisinopril (Lisinopril 2.5 Mg Tablet) 2.5 mg PO DAILY [facility]; Protocol Last Admin: 08/17/25 08:57 Dose: 2.5 mg Loperamide HCl (Loperamide Hcl 2 Mg Capsule) 4 mg PO Q4H PRN PRN Reason: loose stool Last Admin: 08/17/25 08:57 Dose: 4 mg Lorazepam (Lorazepam 1 Mg Tablet) 1 mg PO BEDTIME [facility] Last Admin: 08/17/25 21:10 Dose: 1 mg Lorazepam (Lorazepam 1 Mg Tablet) 1 mg PO BEDTIME PRN PRN Reason: anxiety Magnesium Hydroxide (Milk Of Magnesia 30 Ml Oral.Susp) 30 ml PO DAILY PRN PRN Reason: Constipation Melatonin (Melatonin 3 Mg Tablet) 6 mg PO BEDTIME [facility] Last Admin: 08/17/25 21:10 Dose: 6 mg Nicotine (Nicotine 21 Mg Patch.Td24) 21 mg TRANSDERMA DAILY PRN PRN Reason: nicotine craving Nicotine Polacrilex (Nicotine Polacrilex 2 Mg Gum) 2 mg BUCCAL Q2H PRN PRN Reason: Nicotine Cravings Pt Own (Vibegron [ Gemtesa] 75 Mg Tablet) 75 mg PO DAILY KENZIE Last Admin: 08/17/25 09:07 Dose: 75 mg Trazodone HCl (Trazodone Hcl 50 Mg Tablet) 50 mg PO BEDTIME MRX1 PRN PRN Reason: Insomnia Allergies Allergies Allergy/AdvReac Type Severity Reaction Status Date / Time No Known Allergies Allergy Verified 08/12/25 13:32 Assessment & Plan Assessment & Plan (1) Interstitial cystitis: Status: Acute Code(s): N30.10 - Interstitial cystitis (chronic) without hematuria (2) Suicidal ideation: Status: Acute Code(s): R45.851 - Suicidal ideations (3) 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 Patient reports that she feels as if she had a crash in mid May after [employer] raised the rent by $300. She reports that she had was on high since mid February, spending excessive money and experiencing an increase in energy like bus of energy . Patient reports having suicidal thoughts with no plan. Reports 3 prior suicide attempts in 2020 secondary to depressive episodes via overdose and strangled herself twice. Mother in March of 2025 and she had so much going on. She also reports was diagnosed with interstitial sistis and this has been ongoing stressors for her as she had to completely change her diet. Reports poor appetite. Formulation/clinical reasoning: Increasing in depression and anxiety, changing in appetite, increasing in suicidal thoughts. Feel like is she is back to the previous time during 2020 when she has 3 suicide attempts and was hospitalized for 3 times in that year. Increase in stress related to financial issues. Given history of 3 prior suicide attempts, history of severe depression and anxiety. Patient will benefit in restrictive environment for her own safety, medication adjustment for mood, and refer patient back to outpatient psychiatric services. Hospital course: 08/13/25: Continue with all home medications She is on Wellbutrin 300 for weight control in combination with naltrexone. However she has not taking naltrexone. Recently start on Prozac 20 mg for about 5 days ago from outpatient provider. She also start on Vraylar less than a month ago with current dose is 1.5 mg as potential to having bipolar the patient reports. Ativan 1 mg bedtime with a repeat dose not able to sleep for anxiety. Given Motrin 600 kill 6 hours p.r.n. for to pain. Orajel order q.i.d. for toot pain (bottom left crack tooth). On Macrobid twice a dayx 5 days for UTI. Last dose on 08/17. Gabapentin different dose during the day and at nighttime for anxiety. 08/14/25: Patient slept for 9 hours, compliant with medications. Reports no side effects. Patient so reports she did not slept well last night. We discussed medication change regarding Vraylar to target her anxiety depression/and possible high energy level symptoms. Patient denies safety concerns. Reports her anxiety is slightly better compared to yesterday but the depression is still there. Patient expressed frustration and upset regarding the CPAP machine at night. Reported it was tight but she was not able to adjust it as her daughter usually helps her at home. She also having concerns of how it was clean after she uses it. Concerns related to nursing. Nursing also reports patient reports 2 loose stool since this morning, Imodium ordered, and Vraylar increased up to 3 mg at bedtime. Patient is receptive to the plan, observe visible and attended groups, pleasant and cooperative, she shower this morning, wearing [employer] outfit. Vraylar 3mg at HS and Imodium 4mg q4hrs PRN for loose stools. Patient seen by hospitalist for H+P: per hospitalist note regarding medical treatment plan: OLU Continue with CPAP HLD Continue Atorvastatin History of breast and bladder cancer Bladder-resection in 2010 Breast-status post radiation and lumpectomy in 2013-now continues on anastrozole Interstitial cystitis/UTI Continue Gemtesa Currently being treated for UTI Followed by Dr. Chatman yearly 08/15/25: Patient reports she slept better than the night before, happier with the CPAP machine that was able to be adjusted. Reports feeling tired which could be from combination of feeling not able to sleep well the past to night, new environment, and medication increased. Patient denies safety concerns. No hallucinations. She is happy having a good visit with her daughter. This couple people came to visit today as well. Patient reports anxiety is elevated today after talking to the social work instructor in the morning. She reported that her son who is in [place] we will have the 1st baby soon. Less depressed. Patient seen by the dentist 2 weeks ago, the crack tooth was not able to be extracted due to calcium treatment. Patient will have Josefa from [facility] make appointments with the dentist so she can get it done after discharge. Patient feels that she may be ready by next Tuesday or . We will continue to monitor for safety and mental status change. We will review with patient regarding lab results. Patient reported that when she stressors at home, sometimes she is reading or going to the [facility] for activities and groups. She is aware that that is what she should do daily as she has a membership there. Advised patient not to giving personal information to any patients on the unit. Continued to encourage groups No med changes today. Tired but do well with Vraylar increased. 08/16/25: Patient slept for 8 hours, appetite is the same. She has been moved to 3 different rooms since yesterday. She is observed visible and attended groups. Eating in kitchen with peers. Social and be appropriate. Patient reports that she feels dizzy this morning after given Hydroxyzine this morning for anxiety. Patient has good family support and her sister in [place] who is wealthy who is able to help out patient with portion of the rent monthly which takes a lot of financial burden away from her shoulder which has been bothered her since May. Patient observed happy, smile, less anxious compare to this morning. She talks about how helpful her sister- Ambreen is. She is happy that she can start PHP at [facility] where they provide transportation and she would also attend to [facility] more often for exercise classes. Reviewed new medication for HTN which she says she does not have hx of but not sure why it has been elevated since admitted. . Will continue to monitor. BP has been elevated the past couple of days. Hospitalist contacted, started Lisinopril 2.5mg daily start today. 08/17- no change to plan - continues improving- 2nd round abiotics for uti- didn't sleep well last pm- 08/18 CTP Plan Patient on 15 minute checks for safety. 5 minute checks at night for CPAP Admitted to [facility]. CV. Work with treatment team to do collateral Utox +FEN which could be false positive as she denies using any substances. Seen by hospitalist on 08/14/25: broken tooth that sharp. Patient to FLU with the dentist upon discharge. Patient educated on: medical condition (stool forms) Informed Consent: understands Reason for continued inpatient stay Substantial Risk for: rapid decompensation and med/psych decompensation Time Spent With Patient Time: Total time managing care of this patient today ____ minutes.
[2025-08-18 08:33] VITALS: BP 165/81; PULSE 96; RESP 16; TEMP 36.7; O2SAT 98
[2025-08-18] MEDS: PT OWN (Vibegron [Gemtesa] 75 mg tablet) 75 EACH PO (09:39)
[2025-08-18] MEDS: buPROPion HCl XL 300 MG TAB.ER.24H PO (09:40)
[2025-08-18 21:26] VITALS: BP 150/86; PULSE 100; RESP 18; TEMP 36.6; O2SAT 98
[2025-08-19 08:14] VITALS: BP 156/70; PULSE 92; TEMP 37.2; O2SAT 97
[2025-08-19 08:34] LABS: Anion Gap 10 (12-20); Blood Urea Nitrogen 11 mg/dL (9-16); Calcium 9.3 mg/dL (8.4-10.2); Carbon Dioxide 28 mmol/L (22-29); Chloride 109 mmol/L (96-108); Creatinine Clr Calc Pharmacy 61.6; Estimated Glomerular Filt Rate > 60; Potassium 4.3 mmol/L (3.3-5.1); Sodium 143 mmol/L (135-145)
[2025-08-19] MEDS: PT OWN (Vibegron [Gemtesa] 75 mg tablet) 75 EACH PO (08:34)
[2025-08-19] MEDS: buPROPion HCl XL 300 MG TAB.ER.24H PO (08:35)
[2025-08-19] MEDS: Magnesium Hydrox/Alum Hydrox 30 ML ORAL.SUSP PO (11:20)
[2025-08-19 13:31] VITALS: BP 170/83; PULSE 104
--- NOTE | 2025-08-19 14:00 | HO.PM.IMPN ---
Subjective Subjective Date of Service: 08/19/25 Interval History: Follow up hypertension. Despite addition of lisinopril patient continues to have high blood pressures. She also is reporting that she feels dizzy at times. She is anxious at times worried that it is a side effect of lisinopril. She denies any shortness of breath, dizziness, lightheadedness, headache or any other concerning symptoms. Continues to report a sharp tooth that was broken, she is scheduled to see a dentist to file the 2000 but the tooth continues to be very problematic for her causing her pain at night when she is trying to sleep. Review of Systems Denies any shortness of breath, chest pain, + dizziness, No abdominal pain or discomfort, nausea vomiting or diarrhea. Positive pain in cheek Physical Exam Exam: Exam: CONST: Alert and oriented, in NAD. Well nourished HEENT: Normocephalic, atraumatic, MMM, Eyes clear, Neck supple RESP: Lungs clear, RRR even and regular HEART:,RRR, S1, S2. No murmur, no edema GI:Abdomen Soft NT, ND. + BS times four :Deferred SKIN: Warm dry and intact, no visible lesions or rashes NEURO:CN II-XII Intact bilaterally, Sensation intact. Speech clear PSYCH: Anxious affect Vital Signs: Vital Signs: Last Vital Signs Temp 99.0 F 08/19/25 08:14 Pulse 104 H 08/19/25 13:31 Resp 18 08/18/25 21:26 BP 170/83 H 08/19/25 13:31 Pulse Ox 97 08/19/25 08:14 O2 Del Method Room Air 08/19/25 08:14 BMI result Body Mass Index 25.9 Objective Data Active Medications Acetaminophen (Acetaminophen 325 Mg Tablet) 650 mg PO Q6H PRN PRN Reason: Pain, Mild 1-3,fever,headache Last Admin: 08/17/25 19:13 Dose: 650 mg Documented By: RHETT Al Hydroxide/Mg Hydroxide (Magnesium Hydrox/Alum Hydrox 30 Ml Oral.Susp) 30 ml PO Q6H PRN PRN Reason: Heartburn/Nausea Last Admin: 08/19/25 11:20 Dose: 30 ml Documented By: NICOLIM Anastrozole (Anastrozole 1 Mg Tablet) 1 mg PO DAILY KENZIE Last Admin: 08/19/25 08:35 Dose: 1 mg Documented By: JARRED Atorvastatin Calcium (Atorvastatin Calcium 40 Mg Tablet) 40 mg PO BEDTIME KENZIE Last Admin: 08/18/25 20:35 Dose: 40 mg Documented By: ELLA Benzocaine (Benzocaine 20 % Oral Gel 9 Gm Tube) 1 appl MUCOUS MEM QID PRN; Protocol PRN Reason: tooth Last Admin: 08/16/25 21:11 Dose: 1 appl Documented By: ELLI Bupropion HCl (Bupropion Hcl Xl 300 Mg Tab.Er.24h) 300 mg PO DAILY [facility] Last Admin: 08/19/25 08:35 Dose: 300 mg Documented By: JARRED Cariprazine (Cariprazine Hcl 3 Mg Capsule) 3 mg PO BEDTIME [facility] Last Admin: 08/18/25 20:35 Dose: 3 mg Documented By: ELLA Docusate Sodium (Docusate Sodium 100 Mg Capsule) 100 mg PO BID [facility] Last Admin: 08/19/25 08:35 Dose: Not Given Documented By: JARRED Non-Admin Reason: Patient Refused Fluoxetine HCl (Fluoxetine Hcl 20 Mg Capsule) 20 mg PO DAILY [facility] Last Admin: 08/19/25 08:35 Dose: 20 mg Documented By: JARRED Gabapentin (Gabapentin 600 Mg Tablet) 600 mg PO BEDTIME [facility] Last Admin: 08/18/25 20:36 Dose: 600 mg Documented By: ELLA Gabapentin (Gabapentin 300 Mg Capsule) 300 mg PO DAILY [facility] Last Admin: 08/19/25 08:35 Dose: 300 mg Documented By: JARRED Ibuprofen (Ibuprofen 600 Mg Tablet) 600 mg PO Q6H PRN PRN Reason: tooth pain Last Admin: 08/19/25 05:17 Dose: 600 mg Documented By: ELLA Lisinopril (Lisinopril 2.5 Mg Tablet) 2.5 mg PO DAILY [facility]; Protocol Last Admin: 08/19/25 08:35 Dose: 2.5 mg Documented By: JARRED Loperamide HCl (Loperamide Hcl 2 Mg Capsule) 4 mg PO Q4H PRN PRN Reason: loose stool Last Admin: 08/19/25 08:35 Dose: 4 mg Documented By: JARRED Lorazepam (Lorazepam 1 Mg Tablet) 1 mg PO BEDTIME [facility] Last Admin: 08/18/25 20:36 Dose: 1 mg Documented By: ELLA Lorazepam (Lorazepam 1 Mg Tablet) 1 mg PO BEDTIME PRN PRN Reason: anxiety Magnesium Hydroxide (Milk Of Magnesia 30 Ml Oral.Susp) 30 ml PO DAILY PRN PRN Reason: Constipation Melatonin (Melatonin 3 Mg Tablet) 6 mg PO BEDTIME [facility] Last Admin: 08/18/25 20:36 Dose: 6 mg Documented By: ELLA Nicotine (Nicotine 21 Mg Patch.Td24) 21 mg TRANSDERMA DAILY PRN PRN Reason: nicotine craving Nicotine Polacrilex (Nicotine Polacrilex 2 Mg Gum) 2 mg BUCCAL Q2H PRN PRN Reason: Nicotine Cravings Pt Own (Vibegron [ Gemtesa] 75 Mg Tablet) 75 mg PO DAILY [facility] Last Admin: 08/19/25 08:34 Dose: 75 mg Documented By: JARRED Trazodone HCl (Trazodone Hcl 50 Mg Tablet) 50 mg PO BEDTIME MRX1 PRN PRN Reason: Insomnia Labs 08/12/25 14:02 08/19/25 07:24 Labs: Laboratory Results - last 24 hr 08/19/25 07:24 Anion Gap 10 L Estim Creat Clear Calc 61.6 Estimated GFR > 60 Random Glucose 107 Calcium 9.3 Assessment and Plan (1) HTN (hypertension): Status: Acute Plan MDD/anxiety/SI Treatment per psychiatric team Vraylar recently increased, question causing some of her symptoms. HTN Recently added Lisinopril. Question causing dizziness. We will change to low-dose amlodipine at HS Will add clonidine TID prn for SBP >160 Seasonal allergies/Nasal congestion Add Flonase COVID swab. OLU Continue with CPAP HLD Continue Atorvastatin History of breast and bladder cancer Bladder-resection in 2010 Breast-status post radiation and lumpectomy in 2013-now continues on anastrozole Interstitial cystitis/UTI Continue Gemtesa Currently being treated for UTI Followed by Dr. Chatman yearly Thank you for allowing me to participate in the care of this patient. Will follow as needed, please notify medical provider with any changes in condition or concerns. Quality Stroke Does the patient have a stroke diagnosis?: No VTE Prior VTE?: No VTE Risk Level:: Medical - low VTE Device Contraindication: Treatment Not Indicated VTE Drug Contraindication: Treatment Not Indicated
[2025-08-19 15:14] LABS: MANUAL DIFF FLAG NO
[2025-08-19 15:37] LABS: Anion Gap 14 (12-20); Blood Urea Nitrogen 11 mg/dL (9-16); Calcium 10.2 mg/dL (8.4-10.2); Carbon Dioxide 28 mmol/L (22-29); Chloride 108 mmol/L (96-108); Creatinine Clr Calc Pharmacy 61.6; Estimated Glomerular Filt Rate > 60; Potassium 4.6 mmol/L (3.3-5.1); Sodium 145 mmol/L (135-145)
[2025-08-19 16:50] LABS: COVID-19 Test Negative (Negative); IDNOW Serial# 08D9AD1C
--- NOTE | 2025-08-19 17:29 | HO.PSYCHPN ---
Subjective Subjective Date of Service: 08/19/25 Reason For Visit: SI Interim History: Met with patient; discussed with team; reviewed chart Patient says she is depression has lessened, mood is better and feeling ready for discharge. She says that overall she is feeling back to her regular self; denies any SI. Patient feels that increased Vraylar is helping. Patient shared that she has had a toothache and wants to see a dentist; also does not like how her CPAP is fixated on the unit and is looking forward to getting back to her home. Discussed case with social work who finds patient is at baseline and agrees she is not in imminent risk for harm to self or other and appropriate to return to the community for treatment Mental Status Exam Mental Status Exam Narrative: Pt is alert and oriented; behavior is cooperative, friendly and calm; patient is not in distress; dressed in casual attire with adequate grooming and hygiene; mood is described as good and affect congruent; eye contact appropriate; Speech is normal rate, volume and prosody and not pressured; no psychomotor agitation/retardation present; thought process is organized and goal directed; Thought content is on tx; otherwise pertinent to relevant topics and without any delusional content, paranoid ideations or grandiosity; denies any SI/HI. Denies AVH and there is no evidence of perceptual disturbance. Patients insight and judgment appear intact. Diagnostics Vital Signs (24Hr): Vital Signs - 24 hr 08/18/25 21:26 08/19/25 08:14 08/19/25 13:31 Temperature 97.9 F 99.0 F Pulse Rate 100 92 104 H Respiratory Rate 18 Blood Pressure 150/86 H 156/70 H 170/83 H Pulse Oximetry 98 97 Oxygen Delivery Method Room Air Room Air BMI result Body Mass Index 25.9 Labs 08/12/25 14:02 08/19/25 15:10 Labs: Laboratory Results - last 48 hr 08/19/25 08/19/25 08/19/25 07:24 15:10 16:10 Sodium 143 145 Potassium 4.3 4.6 Chloride 109 H 108 Carbon Dioxide 28 28 Anion Gap 10 L 14 BUN 11 11 Creatinine 0.88 0.88 Estim Creat Clear Calc 61.6 61.6 Estimated GFR > 60 > 60 Random Glucose 107 107 Calcium 9.3 10.2 D COVID-19 (ALLY) Negative COVID-19 Clin Com See Note Medications Medications Current Medications Acetaminophen (Acetaminophen 325 Mg Tablet) 650 mg PO Q6H PRN PRN Reason: Pain, Mild 1-3,fever,headache Last Admin: 08/17/25 19:13 Dose: 650 mg Al Hydroxide/Mg Hydroxide (Magnesium Hydrox/Alum Hydrox 30 Ml Oral.Susp) 30 ml PO Q6H PRN PRN Reason: Heartburn/Nausea Last Admin: 08/19/25 11:20 Dose: 30 ml Amlodipine Besylate (Amlodipine Besylate 2.5 Mg Tablet) 2.5 mg PO BEDTIME KENZIE; Protocol Anastrozole (Anastrozole 1 Mg Tablet) 1 mg PO DAILY KENZIE Last Admin: 08/19/25 08:35 Dose: 1 mg Atorvastatin Calcium (Atorvastatin Calcium 40 Mg Tablet) 40 mg PO BEDTIME KENZIE Last Admin: 08/18/25 20:35 Dose: 40 mg Benzocaine (Benzocaine 20 % Oral Gel 9 Gm Tube) 1 appl MUCOUS MEM QID PRN; Protocol PRN Reason: tooth Last Admin: 08/16/25 21:11 Dose: 1 appl Bupropion HCl (Bupropion Hcl Xl 300 Mg Tab.Er.24h) 300 mg PO DAILY KENZIE Last Admin: 08/19/25 08:35 Dose: 300 mg Cariprazine (Cariprazine Hcl 3 Mg Capsule) 3 mg PO BEDTIME KENZIE Last Admin: 08/18/25 20:35 Dose: 3 mg Clonidine HCl (Clonidine Hcl 0.1 Mg Tablet) 0.1 mg PO TID PRN; Protocol PRN Reason: SBP > 160 Last Admin: 08/19/25 14:11 Dose: 0.1 mg Docusate Sodium (Docusate Sodium 100 Mg Capsule) 100 mg PO BID KENZIE Last Admin: 08/19/25 08:35 Dose: Not Given Fluoxetine HCl (Fluoxetine Hcl 20 Mg Capsule) 20 mg PO DAILY KENZIE Last Admin: 08/19/25 08:35 Dose: 20 mg Fluticasone Propionate (Fluticasone Propionate Nasal 16 Gm [place]) 1 spray NOSTRIL-B DAILY KENZIE Last Admin: 08/19/25 16:42 Dose: Not Given Gabapentin (Gabapentin 600 Mg Tablet) 600 mg PO BEDTIME KENZIE Last Admin: 08/18/25 20:36 Dose: 600 mg Gabapentin (Gabapentin 300 Mg Capsule) 300 mg PO DAILY KENZIE Last Admin: 09/29/25 08:35 Dose: 300 mg Ibuprofen (Ibuprofen 600 Mg Tablet) 600 mg PO Q6H PRN PRN Reason: tooth pain Last Admin: 08/19/25 05:17 Dose: 600 mg Loperamide HCl (Loperamide Hcl 2 Mg Capsule) 4 mg PO Q4H PRN PRN Reason: loose stool Last Admin: 08/19/25 08:35 Dose: 4 mg Lorazepam (Lorazepam 1 Mg Tablet) 1 mg PO BEDTIME KENZIE Last Admin: 08/18/25 20:36 Dose: 1 mg Lorazepam (Lorazepam 1 Mg Tablet) 1 mg PO BEDTIME PRN PRN Reason: anxiety Magnesium Hydroxide (Milk Of Magnesia 30 Ml Oral.Susp) 30 ml PO DAILY PRN PRN Reason: Constipation Melatonin (Melatonin 3 Mg Tablet) 6 mg PO BEDTIME KENZIE Last Admin: 08/18/25 20:36 Dose: 6 mg Nicotine (Nicotine 21 Mg Patch.Td24) 21 mg TRANSDERMA DAILY PRN PRN Reason: nicotine craving Nicotine Polacrilex (Nicotine Polacrilex 2 Mg Gum) 2 mg BUCCAL Q2H PRN PRN Reason: Nicotine Cravings Pt Own (Vibegron [ Gemtesa] 75 Mg Tablet) 75 mg PO DAILY [facility] Last Admin: 08/19/25 08:34 Dose: 75 mg Trazodone HCl (Trazodone Hcl 50 Mg Tablet) 50 mg PO BEDTIME MRX1 PRN PRN Reason: Insomnia Allergies Allergies Allergy/AdvReac Type Severity Reaction Status Date / Time No Known Allergies Allergy Verified 08/12/25 13:32 Assessment & Plan Assessment & Plan (1) Recurrent severe major depressive disorder with anxiety: Status: Acute Code(s): F33.2 - Major depressive disorder, recurrent severe without psychotic features; F41.9 - Anxiety disorder, unspecified (2) HTN (hypertension): Status: Acute Code(s): I10 - Essential (primary) hypertension Plan Hospital course: 08/19 Patient says she is depression has lessened, mood is better and feeling ready for discharge. She says that overall she is feeling back to her regular self; denies any SI. Patient feels that increased Vraylar is helping. Patient shared that she has had a toothache and wants to see a dentist; also does not like how her CPAP is fixated on the unit and is looking forward to getting back to her home. Discussed case with social work who finds patient is at baseline and agrees she is not in imminent risk for harm to self or other and appropriate to return to the community for treatment -hospitalist saw patient and added clonidine prn; discontinued lisinopril added amlodipine MDD/anxiety/SI Treatment per psychiatric team Vraylar recently increased, question causing some of her symptoms. HTN Recently added Lisinopril. Question causing dizziness. We will change to low-dose amlodipine at HS Will add clonidine TID prn for SBP >160 Seasonal allergies/Nasal congestion Add Flonase COVID swab. OLU Continue with CPAP HLD Continue Atorvastatin History of breast and bladder cancer Bladder-resection in 2010 Breast-status post radiation and lumpectomy in 2013-now continues on anastrozole Interstitial cystitis/UTI Continue Gemtesa Currently being treated for UTI Followed by Dr. Chatman yearly Thank you for allowing me to participate in the care of this patient. Will follow as needed, please notify medical provider with any changes in condition or concerns. Patient educated on: diagnosis, medication risk/benefits and medical condition Informed Consent: understands Reason for continued inpatient stay Substantial Risk for: stable for discharge Time Spent With Patient Time: Total time managing care of this patient today ____ minutes.
[2025-08-19 17:40] VITALS: BP 147/65; PULSE 86
[2025-08-19 19:37] LABS: Hematocrit 44.9 % (37.0-47.0); Hemoglobin 14.8 g/dl (12.0-16.0); Imm Gran Abs Auto 0.02 X10*3/uL (0.00-0.03); Imm Gran Pct Auto 0.3 % (0.0-0.4); Lymphocytes Absolute Auto 1.3 X10*3/uL (1.2-4.9); Mean Corpuscular HGB Conc 33.0 g/dl (31.0-35.0); Mean Corpuscular Hemoglobin 28.4 pg (27.0-33.0); Mean Corpuscular Volume 86.2 fL (80.0-98.0); NRBC Abs Auto 0.000 X10*3/uL (0.0-0.012); NRBC Pct Auto 0.0 /100WBC (0.0-0.2); Platelet Count 214 X10*3/uL (160-400); Red Blood Count 5.21 X10*6/uL (4.20-5.50); White Blood Count 6.0 X10*3/uL (4.8-10.8)
[2025-08-19 20:14] VITALS: BP 114/71; PULSE 96; RESP 18; TEMP 37.1; O2SAT 96
[2025-08-19] MEDS: Benzocaine 20 % Oral Gel 9 GM TUBE 1 APPL MUCOUS MEM (21:17)
[2025-08-19 21:19] VITALS: BP 114/71
[2025-08-20 06:57] VITALS: BP 134/75
[2025-08-20 07:57] VITALS: BP 135/75; PULSE 75; RESP 16; TEMP 36.4; O2SAT 96
[2025-08-20] MEDS: PT OWN (Vibegron [Gemtesa] 75 mg tablet) 75 EACH PO (08:20)
[2025-08-20] MEDS: buPROPion HCl XL 300 MG TAB.ER.24H PO (08:21)
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
== END 2025-08-20 11:19 | disposition home or self-care (01) | DRG 885 ==
LOC: HO.ED 08-13 14:35 → HO.PM5 08-13 14:51
PROVIDERS: Nurse Practitioner Family; Physician Assistant Medical; Admitting Provider Nurse Practitioner Psychiatric/Mental Health; Emergency Provider Emergency Medicine; PCP Internal Medicine; Visit Provider Psychiatry & Neurology Psychiatry
DX: F33.2 Major depressive disorder, recurrent severe without psychotic features (principal); R45.851 Suicidal ideations; F41.9 Anxiety disorder, unspecified; E78.5 Hyperlipidemia, unspecified; N30.10 Interstitial cystitis (chronic) without hematuria; C50.919 Malignant neoplasm of unspecified site of unspecified female breast; I10 Essential (primary) hypertension; G47.33 Obstructive sleep apnea (adult) (pediatric); Z20.822 Contact with and (suspected) exposure to COVID-19; Z63.4 Disappearance and death of family member; Z23 Encounter for immunization; Z85.51 Personal history of malignant neoplasm of bladder; Z91.51 Personal history of suicidal behavior; Z79.811 Long term (current) use of aromatase inhibitors; Z79.899 Other long term (current) drug therapy
CPT/HCPCS: 36415; 80048; 80053; 80061; 80143; 80179; 80307; 81001; 82607; 82746; 83036; 83735; 84439; 84443; 85025; 87086; 87635; 90656; 93005; 99285; S9485

== ENCOUNTER → 2025-08-13 08:09 | Outpatient (BNV) | payer MEDICARE, OTHER, SELFPAY | PROVIDERS: Admitting Provider Nurse Practitioner Psychiatric/Mental Health; Emergency Provider Emergency Medicine; PCP Internal Medicine; Visit Provider Internal Medicine Cardiovascular Disease | DX: I49.1 Atrial premature depolarization (principal) | CPT/HCPCS: 93010 ==

== ENCOUNTER → 2025-08-13 14:07 | Outpatient (BNV) | payer MEDICARE, OTHER, SELFPAY | PROVIDERS: Admitting Provider Nurse Practitioner Psychiatric/Mental Health; Emergency Provider Emergency Medicine; PCP Internal Medicine; Visit Provider Nurse Practitioner Family | DX: N30.10 Interstitial cystitis (chronic) without hematuria (principal) | CPT/HCPCS: 99221; 99499 ==

== ENCOUNTER → 2025-08-13 14:07 | Outpatient (BNV) | payer MEDICARE, OTHER, SELFPAY | PROVIDERS: Admitting Provider Nurse Practitioner Psychiatric/Mental Health; Emergency Provider Emergency Medicine; PCP Internal Medicine; Visit Provider Nurse Practitioner Psychiatric/Mental Health | DX: F33.2 Major depressive disorder, recurrent severe without psychotic features (principal); R45.851 Suicidal ideations; F41.9 Anxiety disorder, unspecified; N30.10 Interstitial cystitis (chronic) without hematuria; E78.5 Hyperlipidemia, unspecified | CPT/HCPCS: 90792; 99232 ==

== ENCOUNTER 2025-11-07 09:42 | Outpatient (AMB) | payer MEDICARE, OTHER, SELFPAY ==
--- NOTE | 2025-11-07 09:56 | A.OFFVIS_ITS ---
Intake Visit Reasons: tremors Allergies No Known Allergies Allergy (Verified 08/12/25 13:32) HPI Comments Details: The patient is a 70 year old female presenting for evaluation of memory issues and hand tremors. She reports feeling very confused after recent hospitalizations in May, which included stays in respite care and two different psychiatric wards. She is worried about her memory, partly due to her mother's history with dementia. The patient has a history of depression spanning decades, which she states began after her divorce. She reports a past suicide attempt and having a complete nervous breakdown just before she retired at age 66. She was recently diagnosed with bipolar I disorder. The patient's hands began shaking about two years ago, and it was initially minor. Her medical history is notable for left-sided breast cancer treated s uccessfully with surgery and radiation, but no chemotherapy. She also has hypertension, which was first identified during a hospitalization, and a history of asthma. She denies alcohol use. 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 She is , has two children, and is not currently driving. Family history is significant for a mother who had dementia, a sister with a mental disorder, a son with anxiety, and a daughter with anxiety who is also on the autism spectrum. [facility] Medical History (Updated 11/07/25 @ 10:18 by Clau Ohara MD) Brain fog OLU (obstructive sleep apnea) Anxiety Memory impairment Hyperlipemia HTN (hypertension) Bipolar 2 disorder Tremor Surgical History (Updated 11/06/25 @ 09:51 by Aurelia Peñaloza [facility]) H/O umbilical hernia repair H/O tubal ligation Hx of tonsillectomy H/O adenoidectomy Social History Household Members: None Housing: House Do you presently have visiting nurse or other home services: No Patient Tobacco Use Status: Never used Tobacco Second Hand Smoke Exposure: No service: No Sexual orientation: Straight/Heterosexual Review of Systems Narrative Constitutional:? She complain of weight loss and high blood pressure. HEENT:? She complain of hearing loss and sinus problems. Cardiovascular:?No chest pain, palpitations, orthopnea, PND, or leg swelling. Respiratory:?No cough, shortness of breath, wheezing, or hemoptysis. Gastrointestinal:?No nausea, vomiting, abdominal pain, diarrhea, or constipation. Genitourinary:? She complain of urinary urgency. Musculoskeletal:?No joint pain, stiffness, weakness, or muscle aches. Neurological:? She complain of forgetfulness and tremor. Psychiatric:? She complain of anxiety and depression Endocrine:?No heat/cold intolerance, polydipsia, polyuria, or hair/skin changes. Hematologic/Lymphatic:?No easy bruising, bleeding, or lymphadenopathy. Integumentary (Skin):?No rash, lesions, itching, or color changes. Allergic/Immunologic:?No seasonal allergies, hives, or recurrent infections. Sleep: She complain of sleep problems. Physical Exam Neuro Other: Mental Status: She is alert and awake with normal spont speech and flulency. Comprehension is ok. Affect is anxious. Cranial Nerves: CN II: Visual crum full to confrontation, visual acuity intact. CN III, IV, : Pupils equal, round, reactive to light and accommodation. Extraocular movements are normal. CN V: Facial sensation is normal. CN VII: Facial movements symmetrical. CN VIII: Hearing intact to bedside conversation is normal. CN IX, X: Palate elevates symmetrically. CN XI: Shoulder shrug and head turn symmetrical. CN XII: Tongue midline without atrophy or fasciculations. Motor: Bulk and tone normal in all extremities. No significant muscle weakness in arms and legs. No drift. Reflexes: Deep tendon reflexes 2+ and symmetric. Plantar response down-going bilaterally. Coordination: [id number] with moderate b/l hand action tremor. Gait and Station: No obvious gait abnormality. No ataxia or instability. Sensory: Intact to light touch, pinprick, and vibration. Romberg is negative. Extrapyramidal: Full facial expressions and blinking. No rigidity. B/L hand, moderate, and mild head tremor, action type. Speech: Normal; no dysarthria or tremor. Results Reviewed Results Reviewed: Laboratory Tests 08/15/25 07:53 Vitamin B12 266 Folate 5.5 TSH 2.27 Assessment & Plan Assessment & Plan (1) MCI (mild cognitive impairment): Code(s): G31.84 - Mild cognitive impairment of uncertain or unknown etiology Category: Medical (2) Tremor: Code(s): R25.1 - Tremor, unspecified Category: Medical Plan Impression: 1. Mild cognitive impairment 2. Underlying chronic depression with recent diagnosis of bipolar disorder 3. Moderate hand tremor, action type, with mild head tremor appearing couple of years ago Recommendations: 1. Reassurance and education 2. MRI of brain without contrast 3. Discontinue amlodipine and try propranolol 20 mg twice a day, which can help with blood pressure control and tremor. Impact of this type of medicines on breathing was discussed. She was advised to stopped it if it would affect or breathing. I explained to the patient that her hand tremor appears to be coming from her brain, and essential tremor is less likely given the late age of onset. I also noted that her forgetfulness is likely related to her long and significant hist ory of depression, but we will investigate further. I have recommended an MRI of her brain for further evaluation of her symptoms. Regarding treatment for her tremor, I advised her to stop taking amlodipine and to begin propranolol, which can treat both her tremor and high blood pressure. We discussed the risk that propranolol may worsen her asthma, and I instructed her to inform me if this occurs. Orders: Orders MR head/brain wo con Today G31.84 - Mild cognitive impairment of uncertain or unknown etiology, R25.1 - Tremor, unspecified Medications: New propranolol 20 mg PO BID 180 tabs 0RF Discontinued amlodipine Discontinued Reason: Doctor's Order 2.5 mg See Protocol PO BEDTIME 30 days 30 tabs 0RF Coding Level of Care Code New Pt Level 4 (37808) Diagnoses MCI (mild cognitive impairment) G31.84 Tremor R25.1
== END 2025-11-07 10:42 | disposition home or self-care (01) ==
LOC: HO.HSM 09:42
PROVIDERS: PCP Internal Medicine; Visit Provider Psychiatry & Neurology Neurology
DX: G31.84 Mild cognitive impairment of uncertain or unknown etiology (principal); R25.1 Tremor, unspecified
CPT/HCPCS: 99204

== ENCOUNTER → 2025-11-07 09:42 | Outpatient (BNVA) | payer MEDICARE, OTHER, SELFPAY | PROVIDERS: PCP Internal Medicine; Visit Provider Psychiatry & Neurology Neurology | DX: G31.84 Mild cognitive impairment of uncertain or unknown etiology (principal); F31.9 Bipolar disorder, unspecified; I10 Essential (primary) hypertension; R25.1 Tremor, unspecified | CPT/HCPCS: 99202 ==